=== PATIENT | female | born 1990 | race Caucasian/White ===

== ENCOUNTER 2018-01-27 05:06 | Emergency (ER) | payer OTHER, SELFPAY ==
--- NOTE | 2018-01-27 06:25 | ER ---
Nurse's Notes [facility] Name: Sugar Morataya Age: 27 yrs Sex: Female : 1990 Arrival Date: 01/27/2018 Time: 05:07 Bed 16 Private MD: Diagnosis: Acute pharyngitis Presentation: 01/27 05:36 Presenting complaint: Patient states: "I am having body aches and a swollen hurting jd3 throat for about 3 days now. it hurts to swallow." reports her children have had strep throat this week, denies shortness of breath. Transition of care: patient was not received from another setting of care. Onset of symptoms was January 24, 2018. Risk Assessment: Do you want to hurt yourself or someone else? Patient reports no desire to harm self or others. Initial Sepsis Screen: Does the patient meet any 2 criteria? HR > 90 bpm. Yes Does the patient have a suspected source of infection? No. Patient's initial sepsis screen is negative. Care prior to arrival: Medication(s) given: Motrin, taken at 0330 for fever. 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 - Social history:: Smoking status: Patient uses tobacco products, smokes one-half pack cigarettes per day. - Ebola Screening: : Patient negative for fever greater than or equal to 101.5 degrees Fahrenheit, and additional compatible Ebola Virus Disease symptoms. Screenin:43 Abuse screen: Denies threats or abuse. Nutritional screening: No deficits noted. jd3 Tuberculosis screening: No symptoms or risk factors identified. Fall Risk Ambulatory Aid- None/Bed Rest/Nurse Assist (0 pts). Gait- Normal/Bed Rest/Wheelchair (0 pts) Mental Status- Oriented to own ability (0 pts). Total Martin Fall Scale indicates No Risk (0-24 pts). Assessment: 05:40 General: Appears in no apparent distress. uncomfortable, Behavior is calm, cooperative, jd3 appropriate for age, Reports fever for 2-3 days. Pain: Complains of pain in throat and generalized Pain currently is 6 out of 10 on a pain scale. Quality of pain is described as aching, Is continuous. Neuro: Level of Consciousness is awake, alert, obeys commands, Oriented to person, place, time, situation, Appropriate for age. Cardiovascular: Heart tones S1 S2 present Capillary refill < 3 seconds Patient's skin is warm and dry. Respiratory: Airway is patent Respiratory effort is even, unlabored, Respiratory pattern is regular, symmetrical, Breath sounds are clear bilaterally. Denies shortness of breath. GI: No signs and/or symptoms were reported involving the gastrointestinal system. : No signs and/or symptoms were reported regarding the genitourinary system. EENT: Throat is pink. Derm: Skin is intact, Skin is dry, Skin is normal, Skin temperature is warm. Musculoskeletal: Circulation, motion, and sensation intact. Range of motion: intact in all extremities. 05:49 Reassessment: Patient appears in no apparent distress at this time. Patient and/or jd3 family updated on plan of care and expected duration. Pain level reassessed. Patient is alert, oriented x 3, equal unlabored respirations, skin warm/dry/pink. waiting to be seen by provider. 06:41 Reassessment: Patient appears in no apparent distress at this time. Patient and/or jd3 family updated on plan of care and expected duration. Pain level reassessed. Patient is alert, oriented x 3, equal unlabored respirations, skin warm/dry/pink. reported understanding of discharge instructions, even and steady gait upon discharge. Vital Signs: 05:39 BP 118 / 79; Pulse 97; Resp 16 S; Temp 99.4(O); Pulse Ox 98% on R/A; Weight 70.31 kg jd3 (R); Height 5 ft. 4 in. (162.56 cm) (R); Pain 6/10; 05:48 BP 118 / 76; Pulse 94; Resp 16 S; Pulse Ox 98% on R/A; jd3 05:39 Body Mass Index 26.61 (70.31 kg, 162.56 cm) jd3 ED Course: 05:07 Patient arrived in ED. am2 05:16 James Siddiqui, TANNER is Primary Nurse. jd3 05:39 Triage completed. jd3 05:40 Arm band placed on. jd3 05:43 Patient has correct armband on for positive identification. Bed in low position. Call j light in reach. Side rails up X 1. Adult w/ patient. 06:00 Guy Martinez PA is PHCP. [facility] 06:00 Nic Linn MD is Attending Physician. [facility] 06:40 No provider procedures requiring assistance completed. Patient did not have IV access j during this emergency room visit. Administered Medications: No medications were administered Outcome: 06:25 Discharge ordered by . [facility] 06:41 Discharged to home ambulatory, with family. jd3 06:41 Condition: stable 06:41 Discharge instructions given to patient, family, Instructed on discharge instructions, follow up and referral plans. medication usage, Demonstrated understanding of instructions, follow-up care, medications, Prescriptions given X 1. 06:42 Patient left the ED. [facility] Signatures: Guy Martinez PA PA jmm Moreno, Amanda am2 Davies, Jonathon RN RN j
--- NOTE | 2018-01-27 06:25 | EDPHYS ---
Physician Documentation [facility] Name: Sugar Morataya Age: 27 yrs Sex: Female : 1990 Arrival Date: 01/27/2018 Time: 05:07 Bed 16 Private MD: ED Physician Nic Linn HPI: 01/27 06:24 This 27 yrs old Female presents to ER via Ambulatory with complaints of jmm Difficulty Swallowing, Neck Swelling. 06:24 The patient presents with sore throat. The patient describes throat pain as burning, jmm raw. Onset: The symptoms/episode began/occurred gradually, 2 day(s) ago. Modifying factors: The symptoms are alleviated by nothing, the symptoms are aggravated by fluids, foods, swallowing. Associated signs and symptoms: Pertinent positives: fever. This is a 27 year old female with no chronic medical conditions that presents to the ED with sore throat and body aches beginning 2 days ago. Patient also complains of swelling to her neck. Denies cough, congestion. Mother states that her child was recently diagnosed with strep. 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 - Social history:: Smoking status: Patient uses tobacco products, smokes one-half pack cigarettes per day. - Ebola Screening: : Patient negative for fever greater than or equal to 101.5 degrees Fahrenheit, and additional compatible Ebola Virus Disease symptoms. ROS: 06:24 Eyes: Negative for injury, pain, redness, and discharge. jmm 06:24 Cardiovascular: Negative for chest pain, palpitations, and edema, Respiratory: Negative for shortness of breath, cough, wheezing, and pleuritic chest pain. 06:24 Constitutional: Positive for body aches, fever. 06:24 ENT: Positive for sore throat. 06:24 Neck: Positive for swollen nodes. 06:24 All other systems are negative. Exam: 06:24 Head/Face: atraumatic. jmm 06:24 Cardiovascular: Regular rate and rhythm. No edema appreciated Respiratory: Normal respirations, no respiratory distress appreciated 06:24 Constitutional: The patient appears in no acute distress, alert, awake. 06:24 ENT: TM's: are normal, Posterior pharynx: Uvula: normal, erythema, that is moderate, peritonsillar mass, is not appreciated. 06:24 Neck: Lymph nodes: lymphadenopathy is appreciated, anterior cervical nodes. 06:24 Skin: Appearance: Color: normal in color. 06:24 Neuro: Orientation: is normal, Mentation: is normal, Memory: is normal. 06:24 Psych: Behavior/mood is pleasant, cooperative. Vital Signs: 05:39 BP 118 / 79; Pulse 97; Resp 16 S; Temp 99.4(O); Pulse Ox 98% on R/A; Weight 70.31 kg jd3 (R); Height 5 ft. 4 in. (162.56 cm) (R); Pain 6/10; 05:48 BP 118 / 76; Pulse 94; Resp 16 S; Pulse Ox 98% on R/A; jd3 05:39 Body Mass Index 26.61 (70.31 kg, 162.56 cm) jd3 MDM: 06:24 Patient medically screened. [facility] 06:24 Data reviewed: vital signs, nurses notes. Counseling: I had a detailed discussion with hailey the patient and/or guardian regarding: the historical points, exam findings, and any diagnostic results supporting the discharge/admit diagnosis, the need for outpatient follow up, to return to the emergency department if symptoms worsen or persist or if there are any questions or concerns that arise at home. Administered Medications: No medications were administered Disposition: 19:02 Co-signature as Attending Physician, Nic perera Disposition: 01/27/18 06:25 Discharged to Home. Impression: Acute pharyngitis. - Condition is Stable. - Discharge Instructions: Pharyngitis. - Prescriptions for Amoxicillin 875 mg Oral Tablet - take 1 tablet by ORAL route every 12 hours for 10 days; 20 tablet. - Work release form, Medication Reconciliation Form, Thank You Letter, Antibiotic Education, Prescription Opioid Use form. - Follow up: Private Physician; When: 2 - 3 days; Reason: Recheck today's complaints, Continuance of care, Re-evaluation by your physician. Signatures: Linn, Pin, MD MD pkl Mickail, Guy, PA PA jmm Siddiqui, James, RN RN jd3 Corrections: (The following items were deleted from the chart) 06:42 06:25 01/27/2018 06:25 Discharged to Home. Impression: Acute pharyngitis. Condition is jd3 Stable. Forms are Medication Reconciliation Form, Thank You Letter, Antibiotic Education, Prescription Opioid Use. Follow up: Private Physician; When: 2 - 3 days; Reason: Recheck today's complaints, Continuance of care, Re-evaluation by your physician. hailey
[2018-01-27 06:54] VITALS: TEMP 99.4; O2SAT 98
[2018-01-27 06:55] VITALS: BP 118/76
== END 2018-01-27 06:42 | disposition home or self-care (01) ==
LOC: ER 05:06
DX: J02.9 Acute pharyngitis, unspecified (principal); F17.210 Nicotine dependence, cigarettes, uncomplicated
CPT/HCPCS: 99282

== ENCOUNTER 2019-10-12 11:47 | Emergency (ER) | payer OTHER, SELFPAY ==
[2019-10-12 13:07] LABS: Urine Blood NEGATIVE (NEG); Urine Glucose NEGATIVE (NEG); Urine Protein NEGATIVE (NEG); Urine pH 6.5 (5.0-7.0)
[2019-10-12] MEDS ORDERED: ONDANSETRON 4 MG/2 ML VIAL ONE (13:18)
[2019-10-12] MEDS ORDERED: MORPHINE 4 MG/ML SYR ONE (13:18)
[2019-10-12 13:23] LABS: Absolute Lymphocytes (CBC) 1.9 K/uL (0.7-4.9); Basophils % 0.6 % (0-1.3); Hematocrit 39.1 % (36.0-45.0); Lymphocytes % 24.7 % (15.3-44.8); MPV 9.2 fL (7.6-11.3); RBC Red Blood Cell Count 3.82 M/uL (3.86-4.86)
[2019-10-12 13:41] LABS: ALT/SGPT 23 U/L (12-78); AST/SGOT 12 U/L (15-37); Albumin 3.9 g/dL (3.4-5.0); Alkaline Phosphatase 38 U/L (45-117); BUN Blood Urea Nitrogen 18 mg/dL (7-18); Bicarbonate 26 mmol/L (21-32); Bilirubin Direct 0.2 mg/dL (0-0.2); Bilirubin Total 0.9 mg/dL (0.2-1.0); Glucose Level 94 mg/dL (74-106); Lipase 65 U/L (73-393); Protein, Total 7.1 g/dL (6.4-8.2); Sodium Level 141 mmol/L (136-145)
--- NOTE | 2019-10-12 14:00 | RAD REPORT ---
EXAM DESCRIPTION: US - Abdomen Exam Limited - 10/12/2019 1:51 pm CLINICAL HISTORY: ABD PAIN COMPARISON: No comparisons FINDINGS: No gallstones, sludge or other abnormalities within the gallbladder lumen. There is no wal l thickening or pericholecystic fluid. No common duct stone or biliary tree dilatation identified. IMPRESSION: Normal gallbladder and biliary tree ultrasound.
[2019-10-12] MEDS ORDERED: LIDOCAINE VISCOUS 2% SOLN 15 ML UDC ONE (14:24)
[2019-10-12] MEDS ORDERED: MAGNE/ALUM HYDROXD 30 ML UCUP ONE (14:24)
--- NOTE | 2019-10-12 14:48 | ER ---
Nurse's Notes [facility] Name: Sugar Morataya Age: 29 yrs Sex: Female : 1990 Arrival Date: 10/12/2019 Time: 11:52 Bed 15 Private MD: Diagnosis: Gastritis, unspecified;Epigastric pain Presentation: 10/11 12:07 Chief complaint: Patient states: LUQ pain radiating to chest and back started this iw morning at 4 am, normal BM this am, denies vomiting or urinary s/s, rates pain 6/10, sharp, constant. Coronavirus screen: Proceed with normal triage. Patient denies a cough. Patient denies shortness of breath or difficulty breathing. Patient denies measured and/or subjective temperature greater than 100.4F prior to today's visit. Patient denies travel on a cruise ship or to a country the [facility] currently lists as an affected area. Patient denies contact with known and/or suspected case of COVID-19. Ebola Screen: Patient negative for fever greater than or equal to 101.5 degrees Fahrenheit, and additional compatible Ebola Virus Disease symptoms Patient denies exposure to infectious person. Patient denies travel to an Ebola-affected area in the 21 days before illness onset. No symptoms or risks identified at this time. Initial Sepsis Screen: Does the patient meet any 2 criteria? No. Patient's initial sepsis screen is negative. Does the patient have a suspected source of infection? No. Patient's initial sepsis screen is negative. Risk Assessment: Do you want to hurt yourself or someone else? Patient reports no desire to harm self or others. Onset of symptoms was October 12, 2019. 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 - Social history:: Smoking status: Patient reports the use of cigarette tobacco products, smokes one pack cigarettes per day. Smoking status: . Screenin:03 Abuse screen: Denies threats or abuse. Nutritional screening: No deficits noted. Tuberculosis screening: No symptoms or risk factors identified. Fall Risk None identified. Assessment: 12:55 General: Appears in no apparent distress. uncomfortable, Behavior is calm, cooperative. Pain: Complains of pain in left lower quadrant Pain radiates to chest Pain currently is 8 out of 10 on a pain scale. Quality of pain is described as stabbing, Pain began 4 hours ago. Alleviated by nothing. Neuro: Level of Consciousness is awake, alert, Oriented to person, place, time, situation. Cardiovascular: Heart tones S1 S2 present Capillary refill < 3 seconds Patient's skin is warm and dry. Respiratory: Airway is patent Respiratory effort is even, unlabored, Respiratory pattern is regular, symmetrical, Breath sounds are clear bilaterally. GI: Last BM was October 12, 2019. Bowel sounds present X 4 quads. Abdomen is tender to palpation in left lower quadrant Patient currently denies nausea, vomiting. : No signs and/or symptoms were reported regarding the genitourinary system. Denies burning with urination, urinary frequency. EENT: No signs and/or symptoms were reported regarding the EENT system. Derm: No signs and/or symptoms reported regarding the dermatologic system. Musculoskeletal: No signs and/or symptoms reported regarding the musculoskeletal system. 14:00 Reassessment: Patient and/or family updated on plan of care and expected duration. Pain ah level reassessed. Patient is alert, oriented x 3, equal unlabored respirations, skin warm/dry/pink. Vital Signs: 12:07 BP 109 / 78; Pulse 80; Resp 16; Temp 97.7; Pulse Ox 99% on R/A; Weight 64.86 kg; Height iw 5 ft. 4 in. (162.56 cm); Pain 6/10; 15:00 BP 108 / 65; Pulse 62; Resp 17; Pulse Ox 100% ; ah 12:07 Body Mass Index 24.55 (64.86 kg, 162.56 cm) iw ED Course: 11:52 Patient arrived in ED. mr 12:09 Triage completed. iw 12:10 Arm band placed on. iw 12:50 Hunter Macdonald PA is PHCP. jr8 12:50 Twan Macario DO is Attending Physician. jr8 12:58 Elena Evans, RN is Primary Nurse. ah 13:57 US Abdomen Limited In Process Unspecified. EDMS 14:47 Remberto Perez MD is Referral Physician. jr8 15:00 Patient has correct armband on for positive identification. Placed in gown. Bed in low ah position. Call light in reach. 15:00 No provider procedures requiring assistance completed. IV discontinued, intact, ah bleeding controlled, No redness/swelling at site. Pressure dressing applied. Administered Medications: 13:22 Drug: morphine 4 mg Route: IVP; Site: right antecubital; 13:23 Drug: Zofran (Ondansetron) 4 mg Route: IVP; Site: right antecubital; 14:23 Drug: GI Cocktail without - (Maalox Suspension 30 ml, Lidocaine Liquid 2 % 15 ah ml) Route: PO; Outcome: 14:48 Discharge ordered by . jr8 15:15 Patient left the ED. 15:15 Discharged to home ambulatory. 15:15 Condition: good 15:15 Discharge instructions given to patient, Instructed on discharge instructions, follow up and referral plans. Demonstrated understanding of instructions, follow-up care. Signatures: Dispatcher [employer] [facility] LopezEmma Yanique Britton, RN RN Hunter Macdonald PA PA jr8 Elena Evans, RN TANNER
--- NOTE | 2019-10-12 14:48 | EDPHYS ---
Physician Documentation [facility] Name: Sugar Morataya Age: 29 yrs Sex: Female : 1990 Arrival Date: 10/12/2019 Time: 11:52 Bed 15 Private MD: ED Physician Twan Macario HPI: 10/11 13:31 This 29 yrs old Female presents to ER via Ambulatory with complaints of jr8 Abdominal Pain. 13:31 The patient presents with abdominal pain in the upper abdomen. Onset: The jr8 symptoms/episode began/occurred acutely, today. The symptoms radiate to back. Associated signs and symptoms: Pertinent positives: nausea. The symptoms are described as constant, stabbing. Modifying factors: The symptoms are alleviated by nothing, the symptoms are aggravated by nothing. Severity of pain: At its worst the pain was moderate in the emergency department the pain is unchanged. The patient has not experienced similar symptoms in the past. The patient has not recently seen a physician. 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 - Social history:: Smoking status: Patient reports the use of cigarette tobacco products, smokes one pack cigarettes per day. Smoking status: . ROS: 13:31 Eyes: Negative for injury, pain, redness, and discharge, ENT: Negative for injury, jr8 pain, and discharge, Neck: Negative for injury, pain, and swelling, Cardiovascular: Negative for chest pain, palpitations, and edema, Respiratory: Negative for shortness of breath, cough, wheezing, and pleuritic chest pain, Back: Negative for injury and pain, MS/Extremity: Negative for injury and deformity, Skin: Negative for injury, rash, and discoloration, Neuro: Negative for headache, weakness, numbness, tingling, and seizure. 13:31 Abdomen/GI: Positive for abdominal pain, nausea, Negative for vomiting, diarrhea, constipation, abdominal cramps, abdominal distension. Exam: 13:31 Eyes: Pupils equal round and reactive to light, extra-ocular motions intact. Lids and jr8 lashes normal. Conjunctiva and sclera are non-icteric and not injected. Cornea within normal limits. Periorbital areas with no swelling, redness, or edema. ENT: Nares patent. No nasal discharge, no septal abnormalities noted. Tympanic membranes are normal and external auditory canals are clear. Oropharynx with no redness, swelling, or masses, exudates, or evidence of obstruction, uvula midline. Mucous membranes moist. Neck: Trachea midline, no thyromegaly or masses palpated, and no cervical lymphadenopathy. Supple, full range of motion without nuchal rigidity, or vertebral point tenderness. No Meningismus. Cardiovascular: Regular rate and rhythm with a normal S1 and S2. No gallops, murmurs, or rubs. Normal PMI, no JVD. No pulse deficits. Respiratory: Lungs have equal breath sounds bilaterally, clear to auscultation and percussion. No rales, rhonchi or wheezes noted. No increased work of breathing, no retractions or nasal flaring. Back: No spinal tenderness. No costovertebral tenderness. Full range of motion. Skin: Warm, dry with normal turgor. Normal color with no rashes, no lesions, and no evidence of cellulitis. MS/ Extremity: Pulses equal, no cyanosis. Neurovascular intact. Full, normal range of motion. Neuro: Awake and alert, GCS 15, oriented to person, place, time, and situation. Cranial nerves II-XII grossly intact. Motor strength 5/5 in all extremities. Sensory grossly intact. Cerebellar exam normal. Normal gait. 13:31 Abdomen/GI: Inspection: abdomen appears normal, Bowel sounds: active, all quadrants, Palpation: soft, in all quadrants, moderate abdominal tenderness, in the epigastric area and left upper quadrant, mass, is not appreciated, rebound tenderness, is not appreciated, voluntary guarding, is not appreciated, involuntary guarding, is not appreciated, no appreciated organomegaly, Indicators: McBurney's point is not tender, Jolley's sign is negative, Rovsing's sign is negative, Liver: tenderness, is not appreciated. Vital Signs: 12:07 BP 109 / 78; Pulse 80; Resp 16; Temp 97.7; Pulse Ox 99% on R/A; Weight 64.86 kg; Height iw 5 ft. 4 in. (162.56 cm); Pain 6/10; 15:00 BP 108 / 65; Pulse 62; Resp 17; Pulse Ox 100% ; ah 12:07 Body Mass Index 24.55 (64.86 kg, 162.56 cm) iw MDM: 12:51 Patient medically screened. 8 14:42 Differential diagnosis: bowel obstruction, cholecystitis, Cholelithiasis, jr8 diverticulitis, gastritis, gastroesophageal reflux disease, Hepatitis, Irritable bowel syndrome, non-specific abd pain, pancreatitis, Peptic Ulcer Disease, Perf. Duodenal Ulcer, Perf. Gastric Ulcer, Peritonitis. Data reviewed: vital signs, nurses notes, lab test result(s), radiologic studies, ultrasound. Data interpreted: Pulse oximetry: on room air is 99 %. Interpretation: normal. Counseling: I had a detailed discussion with the patient and/or guardian regarding: the historical points, exam findings, and any diagnostic results supporting the discharge/admit diagnosis, lab results, radiology results, the need for outpatient follow up, a [employer], to return to the emergency department if symptoms worsen or persist or if there are any questions or concerns that arise at home. Response to treatment: the patient's symptoms have markedly improved after treatment. Special discussion: Based on the patient's Hx, exam, and Dx evaluation, there is no indication for emergent surgery or inpatient Tx. It is understood by the patient/guardian that if the Sx's persist or worsen they need to return immediately for re-evaluation. 10/11 12:50 Order name: Basic Metabolic Panel; Complete Time: 13:45 [facility] 10/11 12:50 Order name: CBC with Diff; Complete Time: 13:24 [facility] 10/11 12:50 Order name: Creatinine for Radiology; Complete Time: 13:45 [facility] 10/11 12:50 Order name: Hepatic Function; Complete Time: 13:45 [facility] 10/11 12:50 Order name: Lipase; Complete Time: 13:45 [facility] 10/11 13:03 Order name: Urine Dipstick--Ancillary (enter results); Complete Time: 13:16 10/11 12:50 Order name: IV Saline Lock; Complete Time: 13:10 [facility] 10/11 12:50 Order name: Labs collected and sent; Complete Time: 13:10 [facility] 10/11 12:50 Order name: Urine Test (obtain specimen) [facility] 10/11 13:03 Order name: Urine --Ancillary (enter results); Complete Time: 13:16 eb 10/11 13:16 Order name: US Abdomen Limited; Complete Time: 14:05 jr8 10/11 12:50 Order name: Urine Dipstick-Ancillary (obtain specimen) jr8 Administered Medications: 13:22 Drug: morphine 4 mg Route: IVP; Site: right antecubital; 13:23 Drug: Zofran (Ondansetron) 4 mg Route: IVP; Site: right antecubital; 14:23 Drug: GI Cocktail without - (Maalox Suspension 30 ml, Lidocaine Liquid 2 % 15 ah ml) Route: PO; Disposition: 15:26 Co-signature as Attending Physician, Twan Macario DO I agree with the assessment and ms3 plan of care. Attestation: The patient's history, exam findings, diagnostics, and a summary of any interventions or procedures was reviewed in detail with Hunter STOVALL. Disposition: 10/12/19 14:48 Discharged to Home. Impression: Gastritis, unspecified, Epigastric pain. - Condition is Stable. - Discharge Instructions: Gastritis, Adult, Peptic Ulcer. - Prescriptions for Protonix 40 mg Oral Tablet - take 1 tablet by ORAL route once daily; 30 tablet. - Medication Reconciliation Form, Thank You Letter, Antibiotic Education, Prescription Opioid Use form. - Follow up: Remberto Perez MD; When: 5 - 6 days; Reason: Recheck today's complaints, Continuance of care, Re-evaluation by your physician. - Problem is new. - Symptoms have improved. Signatures: Dispatcher [employer] Yanique Reaves RN RN iw Roszak, Josh, PA PA jr8 Elena Evans RN RN ah Sims, Marcus, DO DO ms3 Corrections: (The following items were deleted from the chart) 15:15 14:48 10/12/2019 14:48 Discharged to Home. Impression: Gastritis, unspecified; Epigastric pain. Condition is Stable. Forms are Medication Reconciliation Form, Thank You Letter, Antibiotic Education, Prescription Opioid Use. Follow up: Remberto Perez; When: 5 - 6 days; Reason: Recheck today's complaints, Continuance of care, Re-evaluation by your physician. Problem is new. Symptoms have improved. jr8
[2019-10-12 15:46] VITALS: BP 109/78; TEMP 97.7; O2SAT 99
== END 2019-10-12 15:15 | disposition home or self-care (01) ==
LOC: ER 11:47
DX: K29.70 Gastritis, unspecified, without bleeding (principal); F17.210 Nicotine dependence, cigarettes, uncomplicated
CPT/HCPCS: 85025; 80048; 36415; 81025; 80076; 81003; 83690; 76705; 96375; 96374; 99283; J2405

== ENCOUNTER 2022-11-26 14:41 | Emergency (ER) | payer OTHER ==
[2022-11-26] MEDS ORDERED: NA CHLORIDE 0.9% 100 ML ONE (15:26)
[2022-11-26] MEDS ORDERED: PIPERACIL/TAZO 3.375 GM VIAL IV ONE (15:27)
[2022-11-26] MEDS ORDERED: dexAMETHasone 10 MG/ML VIAL ONE (15:33)
[2022-11-26] MEDS ORDERED: KETOROLAC 30 MG/ML INJ ONE (15:33)
--- NOTE | 2022-11-26 15:55 | RAD REPORT ---
EXAM DESCRIPTION: RAD - Forearm Left - 11/26/2022 3:38 pm CLINICAL HISTORY: Left forearm pain FINDINGS: No fracture is seen. No bony abnormality noted
--- NOTE | 2022-11-26 16:01 | RAD REPORT ---
EXAM DESCRIPTION: RAD - Shoulder Left 2 View - 11/26/2022 3:38 pm CLINICAL HISTORY: Left shoulder pain FINDINGS: Old left clavicular fracture. No acute fracture or dislocation noted. No additional significant bone or joint abnormality noted
--- NOTE | 2022-11-26 16:40 | ER ---
Nurse's Notes [facility] Name: Sugar Morataya Age: 32 yrs Sex: Female : 1990 Arrival Date: 11/26/2022 Time: 14:41 Bed DIS1 Private MD: Diagnosis: Pain in left shoulder Presentation: 11/26 14:48 Chief complaint: Patient states: Left should pain - radiates down left arm to ld1 fingertips. Pt denies injury. Coronavirus screen: At this time, the client does not indicate any symptoms associated with coronavirus-19. Ebola Screen: No symptoms or risks identified at this time. Initial Sepsis Screen: Does the patient meet any 2 criteria? No. Patient's initial sepsis screen is negative. Does the patient have a suspected source of infection? No. Patient's initial sepsis screen is negative. Risk Assessment: Do you want to hurt yourself or someone else? Patient reports no desire to harm self or others. Onset of symptoms was November 26, 2022. 14:48 Method Of Arrival: Ambulatory ld1 14:48 Acuity: LYNNETTE 4 ld1 Triage Assessment: 14:51 General: Appears in no apparent distress. comfortable, Behavior is calm, cooperative, ld1 appropriate for age. Pain: Complains of pain in left arm Pain radiates to left arm Pain currently is 8 out of 10 on a pain scale. Quality of pain is described as throbbing. EENT: No signs and/or symptoms were reported regarding the EENT system. Neuro: Level of Consciousness is awake, alert, obeys commands, Oriented to person, place, time, situation. Cardiovascular: Capillary refill < 3 seconds Patient's skin is warm and dry. Respiratory: Airway is patent Respiratory effort is even, unlabored. GI: Abdomen is flat, non-distended. : No signs and/or symptoms were reported regarding the genitourinary system. Derm: No signs and/or symptoms reported regarding the dermatologic system. Musculoskeletal: No signs and/or symptoms reported regarding the musculoskeletal system. Historical: - Allergies: 14:51 No Known Allergies; ld1 - Home Meds: 14:51 None [Active]; ld1 - PMHx: 14:51 None; ld1 - PSHx: 14:51 None; ld1 - Immunization history:: Adult Immunizations up to date, Client reports receiving the 2nd dose of the Covid vaccine. - Social history:: Smoking status: Patient denies any tobacco usage or history of. Patient/guardian denies using alcohol. Screenin:51 [facility] ED Fall Risk Assessment (Adult) History of falling in the last 3 months, ss including since admission No falls in past 3 months (0 pts). Abuse screen: Denies threats or abuse. Denies injuries from another. Nutritional screening: No deficits noted. Tuberculosis screening: Never had TB. Assessment: 16:51 General: Appears in no apparent distress. comfortable, Behavior is calm, cooperative. ss Neuro: Level of Consciousness is awake, alert, obeys commands. Respiratory: Respiratory effort is even, unlabored. Derm: Skin is intact, is healthy with good turgor, Skin is pink, warm \T\ dry. normal. Vital Signs: 14:48 BP 124 / 76; Pulse 81; Resp 18; Temp 98.1(TE); Pulse Ox 98% on R/A; Weight 68.95 kg; ld1 Height 5 ft. 5 in. ; Pain 8/10; 14:48 Body Mass Index 25.29 (68.95 kg, 165.1 cm) ld1 14:48 Pain Scale: Adult ld1 ED Course: 14:43 Patient arrived in ED. ts1 14:44 Guy Martinez PA is PHCP. jmm 14:44 Alberto Rebolledo MD is Attending Physician. [facility] 14:51 Triage completed. ld1 14:51 Arm band placed on right wrist. ld1 15:40 Forearm Left In Process Unspecified. EDMS 15:40 Shoulder Left 2 View In Process Unspecified. EDMS 16:39 Alek Dyer MD is Referral Physician. jmm 16:39 Oskar Farfan MD is Referral Physician. jmm 16:39 Jose Daniel Vitale MD is Referral Physician. jmm 16:50 Selena Barnard, TANNER is Primary Nurse. ss 16:51 Patient has correct armband on for positive identification. ss 16:51 No provider procedures requiring assistance completed. Patient did not have IV access ss during this emergency room visit. 16:52 Sling applied to left arm. ss Administered Medications: 15:38 Drug: Ketorolac IM 30 mg Route: IM; Site: right deltoid; ld1 16:50 Follow up: Response: No adverse reaction ss 15:38 Drug: Dexamethasone IM 10 mg Route: IM; Site: right deltoid; ld1 16:50 Follow up: Response: No adverse reaction ss Medication: 16:51 VIS not applicable for this client. ss Outcome: 16:40 Discharge ordered by . hailey 16:51 Discharged to home ambulatory, with family. ss 16:51 Condition: good 16:51 Discharge instructions given to patient, family, Instructed on discharge instructions, follow up and referral plans. medication usage, Demonstrated understanding of instructions, follow-up care, medications, Prescriptions given X 3. 16:52 Patient left the ED. ss Signatures: Dispatcher [employer] EDMS Guy Martinez PA PA jmm Blanchard, Shelby, RN RN Colette Macario RN RN ld1 Марина Cotto, DANN PAS ts1
--- NOTE | 2022-11-26 16:40 | EDPHYS ---
Physician Documentation [facility] Name: Sugar Morataya Age: 32 yrs Sex: Female : 1990 Arrival Date: 11/26/2022 Time: 14:41 Bed DIS1 Private MD: ED Physician Alberto Rebolledo HPI: 11/26 14:55 This 32 yrs old Female presents to ER via Ambulatory with complaints of Arm Pain. [facility] 14:55 The patient or guardian complains of pain. The complaints affect the anterior aspect of jmm left shoulder. Onset: The symptoms/episode began/occurred gradually, 1 week(s) ago. This is 32 year old female with no chronic medical conditions that presents to the ED with complaints of left shoulder pain which radiates down the left arm. Denies injury. States having a fracture to her forearm as a child. Denies fever. . Historical: - Allergies: 14:51 No Known Allergies; ld1 - Home Meds: 14:51 None [Active]; ld1 - PMHx: 14:51 None; ld1 - PSHx: 14:51 None; ld1 - Immunization history:: Adult Immunizations up to date, Client reports receiving the 2nd dose of the Covid vaccine. - Social history:: Smoking status: Patient denies any tobacco usage or history of. Patient/guardian denies using alcohol. ROS: 14:55 Constitutional: Negative for fever, chills, and weight loss, Cardiovascular: Negative jmm for chest pain, palpitations, and edema, Respiratory: Negative for shortness of breath, cough, wheezing, and pleuritic chest pain. 14:55 MS/extremity: Positive for pain, paresthesias. 14:55 All other systems are negative. Exam: 14:55 Constitutional: This is a well developed, well nourished patient who is awake, alert, jmm and in no acute distress. Head/Face: atraumatic. Eyes: EOMI, no conjunctival erythema appreciated ENT: Moist Mucus Membranes Neck: Trachea midline, Supple Chest/axilla: Normal chest wall appearance and motion. Cardiovascular: Regular rate and rhythm. 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 14:55 Skin: Appearance: Color: normal in color. 14:55 Neuro: Orientation: is normal, Mentation: is normal, Memory: is normal. 14:55 Psych: Behavior/mood is pleasant, cooperative. Vital Signs: 14:48 BP 124 / 76; Pulse 81; Resp 18; Temp 98.1(TE); Pulse Ox 98% on R/A; Weight 68.95 kg; ld1 Height 5 ft. 5 in. ; Pain 8/10; 14:48 Body Mass Index 25.29 (68.95 kg, 165.1 cm) ld1 14:48 Pain Scale: Adult ld1 MDM: 14:55 Patient medically screened. [facility] 11/26 15:13 Order name: Forearm Left; Complete Time: 15:58 [facility] 11/26 15:13 Order name: Shoulder Left 2 View; Complete Time: 16:07 [facility] 11/26 16:39 Order name: Sling; Complete Time: 16:50 [facility] Administered Medications: 15:38 Drug: Ketorolac IM 30 mg Route: IM; Site: right deltoid; ld1 16:50 Follow up: Response: No adverse reaction ss 15:38 Drug: Dexamethasone IM 10 mg Route: IM; Site: right deltoid; ld1 16:50 Follow up: Response: No adverse reaction ss Disposition: 16:53 Co-signature as Attending Physician, Alberto Rebolledo MD I reviewed the patient's care rt provided by the Advanced Practice Provider and agree with the diagnosis and treatment plan. Disposition Summary: 11/26/22 16:40 Discharge Ordered Location: Home [facility] Condition: Stable [facility] Diagnosis - Pain in left shoulder [facility] Followup: [facility] - With: Alek Dyer MD - When: 2 - 3 days - Reason: Recheck today's complaints, Continuance of care, Re-evaluation by your physician Followup: [facility] - With: Oskar Farfan MD - When: 2 - 3 days - Reason: Recheck today's complaints, Continuance of care, Re-evaluation by your physician Followup: [facility] - With: Jose Daniel Vitale MD - When: 2 - 3 days - Reason: Recheck today's complaints, Continuance of care, Re-evaluation by your physician Discharge Instructions: - Discharge Summary Sheet [facility] - Shoulder Pain [facility] Forms: - Medication Reconciliation Form [facility] - Thank You Letter [facility] - Antibiotic Education [facility] - Prescription Opioid Use [facility] Prescriptions: - Ultracet 37.5-325 mg Oral Tablet - take 1 tablet by ORAL route every 6 hours You can take 1 to 2 tablets by mouth [facility] every 6 hours as needed for pain; 20 tablet; Refills: 0, Product Selection Permitted - Diclofenac Sodium 75 mg Oral Tablet Sustained Release - take 1 tablet by ORAL route 2 times per day; 30 tablet; Refills: 0, Product [facility] Selection Permitted - orphenadrine citrate 100 mg Oral Tablet Sustained Release - take 1 tablet by ORAL route 2 times per day As needed; 20 tablet; Refills: 0, [facility] Product Selection Permitted Signatures: Dispatcher [employer] EDMS Guy Martinez PA PA jmm Sims, Lauren, RN RN ld1 Alberto Rebolledo MD MD rt Selena Summers RN ss Corrections: (The following items were deleted from the chart) 15:35 15:13 Elbow Left 2 View ordered. EDMS EDMS
[2022-11-26 17:06] VITALS: BP 124/76; TEMP 98.1; O2SAT 98
== END 2022-11-26 16:52 | disposition home or self-care (01) ==
LOC: ER 14:41
DX: M25.512 Pain in left shoulder (principal)
CPT/HCPCS: 73090; 73030; 96372; 99284; J2543; J1100